=== PATIENT | female | born 1995 | race Caucasian/White ===

== ENCOUNTER → 2019-08-01 14:13 | Outpatient (BNVA) | payer SELFPAY | PROVIDERS: Visit Provider Nurse Practitioner Family | DX: R30.0 Dysuria (principal); E11.9 Type 2 diabetes mellitus without complications; K29.71 Gastritis, unspecified, with bleeding; F32.9 Major depressive disorder, single episode, unspecified; B37.9 Candidiasis, unspecified; N39.0 Urinary tract infection, site not specified | CPT/HCPCS: 81003; 81025 ==

== ENCOUNTER → 2019-08-07 15:44 | Outpatient (BNVA) | payer SELFPAY | PROVIDERS: Visit Provider Nurse Practitioner Family | DX: R53.83 Other fatigue (principal); E78.2 Mixed hyperlipidemia; E11.9 Type 2 diabetes mellitus without complications; E55.9 Vitamin D deficiency, unspecified | CPT/HCPCS: 80053; 80061; 81001; 82306; 83036; 84443 ==

== ENCOUNTER → 2019-11-22 14:38 | Outpatient (BNVA) | payer MEDICAID, SELFPAY | PROVIDERS: PCP Nurse Practitioner Family; Visit Provider Nurse Practitioner Family | DX: N39.0 Urinary tract infection, site not specified (principal); E11.9 Type 2 diabetes mellitus without complications | CPT/HCPCS: 36415; 80053; 81003; 83036; 85025 ==

== ENCOUNTER → 2020-01-23 09:01 | Outpatient (BNVA) | payer MEDICAID, SELFPAY | PROVIDERS: PCP Nurse Practitioner Family; Visit Provider Nurse Practitioner Family | DX: K52.9 Noninfective gastroenteritis and colitis, unspecified (principal); E78.2 Mixed hyperlipidemia; E11.9 Type 2 diabetes mellitus without complications; R10.84 Generalized abdominal pain | CPT/HCPCS: 80053; 80061; 83036; 84439; 84443; 84481; 86140 ==

== ENCOUNTER 2020-09-24 13:40 | Outpatient (CLI) | payer MEDICAID, SELFPAY ==
--- NOTE | 2020-09-24 13:56 | US_ITS ---
WS: [id number] ULTRASOUND OB LIMITED TECHNIQUE: Limited ultrasound examination of the fetus. CLINICAL INFORMATION: POLYHYDRAMNIOS 3RD TRIMESTER COMPARISON: None. FINDINGS: Polyhydramnios with SPENCER 27.4 CM. Vertex presentation with anterior placenta grade 2. Cervix is long and closed measuring 3.2 CM. Single interuterine gestation. presentation is vertex Placental location is anterior. Placenta grade: 2 heart rate 131 BPM. Biophysical profile 8 out of 8. breathin movement: 2 tone: 2 Amniotic fluid: 2 IMPRESSION 1. Normal biophysical profile 8 out of 8 2. Polyhydramnios. SPENCER 27.5 CM greater than the 97th percentile. 3. Cervix is long and closed. 4. Vertex presentation with anterior placenta grade 2.
== END 2020-09-24 13:41 | disposition home or self-care (01) ==
LOC: RAD 13:47
PROVIDERS: PCP Nurse Practitioner Family; Visit Provider Obstetrics & Gynecology
DX: O40.3XX1 Polyhydramnios, third trimester, fetus 1 (principal)
CPT/HCPCS: 76819

== ENCOUNTER 2020-09-26 07:58 | Outpatient (CLI) | payer MEDICAID, SELFPAY ==
--- NOTE | 2020-09-26 08:02 | US_ITS ---
WS: [id number] ULTRASOUND OB LIMITED TECHNIQUE: Limited ultrasound examination of the fetus. CLINICAL INFORMATION: POLYHYDRAMNIOS 3RD TRIMESTER COMPARISON: September 24, 2020 FINDINGS: Cervix measures 2.6 cm although not well seen Single interuterine gestation. presentation is vertex Placental location is anterior. Placenta grade: 2 heart rate 136 BPM. SPENCER 21.8cm today slightly decreased from previous just below the 95th percentile Biophysical profile 8 out of 8. breathin movement: 2 tone: 2 Amniotic fluid: 2 IMPRESSION 1. Normal biophysical profile 8 out of 8 2. SPENCER just below the 95th percentile
== END 2020-09-26 07:59 | disposition home or self-care (01) ==
LOC: RAD 08:00
PROVIDERS: PCP Nurse Practitioner Family; Visit Provider Obstetrics & Gynecology
DX: O40.3XX1 Polyhydramnios, third trimester, fetus 1 (principal)
CPT/HCPCS: 76819

== ENCOUNTER → 2021-12-01 11:52 | Outpatient (BNVA) | payer MEDICAID, SELFPAY | PROVIDERS: PCP Nurse Practitioner Family; Visit Provider Nurse Practitioner | DX: E11.9 Type 2 diabetes mellitus without complications (principal) | CPT/HCPCS: 83036 ==

== ENCOUNTER → 2022-10-07 09:14 | Outpatient (BNVA) | payer MEDICAID, SELFPAY | PROVIDERS: PCP Nurse Practitioner Family; Visit Provider Obstetrics & Gynecology | DX: Z32.00 Encounter for pregnancy test, result unknown (principal) | CPT/HCPCS: 81025 ==

== ENCOUNTER → 2022-10-19 15:30 | Outpatient (BNVA) | payer MEDICAID, SELFPAY | PROVIDERS: PCP Nurse Practitioner Family; Visit Provider Obstetrics & Gynecology | DX: Z34.80 Encounter for supervision of other normal pregnancy, unspecified trimester (principal) | CPT/HCPCS: 80307; 84315; 85027; 86592; 86762; 86803; 86850; 86900; 87077; 87086; 87184; 87340; 87806 ==

== ENCOUNTER → 2022-10-27 14:00 | Outpatient (BNVA) | payer MEDICAID, SELFPAY | PROVIDERS: PCP Nurse Practitioner Family; Visit Provider Obstetrics & Gynecology | DX: Z36.87 Encounter for antenatal screening for uncertain dates (principal); Z34.91 Encounter for supervision of normal pregnancy, unspecified, first trimester; Z3A.09 9 weeks gestation of pregnancy | CPT/HCPCS: 76817; 84315 ==

== ENCOUNTER → 2023-03-01 12:55 | Outpatient (BNVA) | payer MEDICAID, SELFPAY | PROVIDERS: PCP Nurse Practitioner Family; Visit Provider Nurse Practitioner Women's Health | DX: Z34.80 Encounter for supervision of other normal pregnancy, unspecified trimester (principal) | CPT/HCPCS: 84315; 85025 ==

== ENCOUNTER → 2023-03-17 12:00 | Outpatient (BNVA) | payer MEDICAID, SELFPAY | PROVIDERS: PCP Nurse Practitioner Family; Visit Provider Nurse Practitioner Women's Health | DX: Z34.90 Encounter for supervision of normal pregnancy, unspecified, unspecified trimester (principal); R82.90 Unspecified abnormal findings in urine | CPT/HCPCS: 81000; 87086 ==

== ENCOUNTER → 2023-04-28 15:00 | Outpatient (BNVA) | payer MEDICAID, SELFPAY | PROVIDERS: PCP Nurse Practitioner Family; Visit Provider Nurse Practitioner Women's Health | DX: Z34.80 Encounter for supervision of other normal pregnancy, unspecified trimester (principal) | CPT/HCPCS: 84315; 87081; 87491; 87591 ==

== ENCOUNTER 2023-09-01 05:42 | Day surgery (SDC) | payer MEDICAID, SELFPAY ==
--- NOTE | 2023-08-31 13:35 | W.PM.OPSFHP ---
Same Day Surgery H&P Indication for Procedure/HPI DATE OF PROCEDURE: September 01, 2023 CHIEF COMPLAINT/INDICATIONFOR SURGICAL PROCEDURE: desires permanent sterilization PREOP DIAGNOSIS: desires permanent sterilization PLANNED PROCEDURE: Operation Date: 09/01/23 07:00 Proposed Procedures p Laparoscopic bilateral partial salpingectomy 60046(Bilateral) - Terrence Saenz MD 27 y.o. A1 desires permanent sterilization does not want reversible control now scheduled for laparoscopic bilateral partial salpingectomy Medications/Allergies* Home Medications Medication Instructions Recorded Confirmed Type No Known Home Medications 08/31/23 08/31/23 History Allergies/Adverse Reactions Allergy/AdvReac Type Severity Reaction Status Date / Time Alpha-Gal Allergy Unknown Verified 08/31/23 10:04 (Wxhznwscv-Twrex-2,3-Gala Pertinent History/Comorbid Conditions* Medical History (Updated 05/28/23 @ 22:20 by Terrence Saenz MD) Abdominal pain Chronic diarrhea Depression GERD (gastroesophageal reflux disease) Diabetes Surgical History (Updated 08/01/19 @ 14:26 by CHOLO Villarreal) History of surgery on wrist (08/30/14) Open reduction and external fixation of wrist, Dr. Jessica Family History (Updated 04/18/19 @ 13:10 by Kaia Bruno RN) Diabetes Cancer Social History Smoking and tobacco/nicotine status: current every day tobacco/nicotine user cigarettes Packs smoked per day: 0.5 Lives independently: Yes Household members: family Pertinent Exam Findings alert, oriented x 3, clear to auscultation bilaterally and regular rate & rhythm Recommendations Surgery/Procedure today Coding Level of Care Code Acute Code for Chg Fwd Time Spent (min) 20
[2023-09-01] VITALS (10 sets, daily range): BP systolic 101–125; BP diastolic 71–84; PULSE 92–111; RESP 12–18; TEMP 36.2–36.6; O2SAT 94–99
[2023-09-01 06:08] LABS: OR HCG Qualitative Urine Negative (Negative)
[2023-09-01] MEDS: sodium chloride 0.9% 1,000 ML 30 ML IV (06:23)
--- NOTE | 2023-09-01 06:45 | ANES.PREANE2 ---
Pre-Anesthetic Assessment Height/Weight: Height 1.65 m Weight 78.925 kg Temp Pulse Resp BP Pulse Ox O2 Del Method 97.8 F 109 H 18 113/80 94 Room Air 09/01/23 06:00 09/01/23 06:00 09/01/23 06:00 09/01/23 06:00 09/01/23 06:00 09/01/23 06:00 Preop Diagnosis: desires permanent sterilization Operation Date: 09/01/23 07:00 Proposed Procedures p Laparoscopic bilateral partial salpingectomy 51765(Bilateral) - Terrence Saenz MD Familial anesthetic complications: None Was Beta Luis Felipe taken within 24 hours: N/A Was Clonidine taken within 24 hours: N/A Last intake: Intake Last Liquid Date 08/31/23 Last Liquid Time 22:00 Last Solid Date 08/31/23 Last Solid Time 22:00 Social Tobacco and No alcohol Exam alert, oriented x 3, clear to auscultation bilaterally and regular rate & rhythm Airway Mallampati: Class III Dentition: other (2 teeth pulled) Metabolic Diabetes Mellitus Anesthetic Plan ASA status: 2 Anesthesia: General Risk of > 500 ml blood loss (7ml/kg in children): No Medications/Allergies Home Medications Medication Instructions Recorded Confirmed Last Taken Type No Known Home Medications 08/31/23 08/31/23 Unknown History Allergies Allergy/AdvReac Type Severity Reaction Status Date / Time Alpha-Gal Allergy Unknown Verified 08/31/23 10:04 (Todttgtix-Uxlkh-1,3-Gala Current Medications Generic Name Dose Route Start Last Admin Trade Name Freq PRN Reason Stop Dose Admin Sodium Chloride 1,000 mls @ 30 mls/hr 09/01/23 06:00 09/01/23 06:23 Sodium Chloride 0.9% IV 09/02/23 05:59 30 mls/hr .Q24H DHARMESH Administration PFSH Anesthesia Medical History Abdominal pain Chronic diarrhea Depression GERD (gastroesophageal reflux disease) Diabetes Surgical History History of surgery on wrist (08/30/14) Open reduction and external fixation of wrist, Dr. Jessica Family History Other Cancer Diabetes Social History Smoking and tobacco/nicotine status: current every day tobacco/nicotine user cigarettes Packs smoked per day: 0.5 Lives independently: Yes Household members: family Data Anesthesia Cardiac Studies: No Data to Display
--- NOTE | 2023-09-01 06:54 | W.PM.OPSUD ---
Surgery/Procedure H&P Update DATE OF PROCEDURE: September 01, 2023 DATE H&P PERFORMED: 08/31/23 H&P UPDATE INFORMATION: I have reviewed H&P completed within last 30 days, I have examined patient prior to procedure and No changes to prior documentation PREOP DIAGNOSIS: desires permanent sterilization PLANNED PROCEDURE: Operation Date: 09/01/23 07:00 Proposed Procedures p Laparoscopic bilateral partial salpingectomy 09373(Bilateral) - Terrence Saenz MD
--- NOTE | 2023-09-01 08:50 | P.OP_ITS ---
Operative Report Date of procedure: September 01, 2023 Pre-op diagnosis: desires permanent sterilization Post-op diagnosis: same Post-op findings: normal uterus, tubes, and ovaries Procedure done: laparoscopic bilateral partial salpingectomy Implants: none Specimens removed/disposition: bilateral partial fallopian tube segments Surgeon: Terrence Saenz MD Anesthesia: General Estimated blood loss (mL): 5 Complications: none Condition: stable Disposition: PACU Brief History: 27 y.o. desires permanent sterilization Procedure: Informed consent was obtained. The patient was taken to the OR and placed on the table. General endotracheal anesthesia was induced. The patient was then placed in dorsolithotomy position. The abdomen and perineum were then prepped and draped in the usual fashion. A 5 mm subumbilical skin incision was made. A 5 mm trocar with sheath was then inserted into the peritoneal cavity under direct visualization with the laparoscope. After confirming intraperitoneal position, pneumoperitoneum was achieved. Two separate 5 mm incisions were made in the right and left mid- quadrants. 5 mm trocars with sheaths were then inserted into the peritoneal cavity under direct visualization with the laparoscope. The right fallopian tube was then identified to its fimbrial end. Starting at the fimbrial end, the mesosalpinx was then coagulated and cut using the Ligasure. A 3-4 cm portion of the right fallopian tube was excised and removed via one of the ports. This was sent to pathology. There was no bleeding seen. Similarly, the left fallopian tube was identified to its fimbrial end. A 3-4 cm portion of the left fallopian tube was excised and removed, sent to pathology. There was no bleeding. All instruments were then removed from the peritoneal cavity after the pneumoperitoneum was allowed to escape. The skin incisions were closed using 3- O chromic in subcuticular fashion. Dermabond was applied. The patient was then placed supine and awakened, taken the the PACU in good condition. Postop condition: stable EBL: 5 cc Complications: none Sponge, needles, and instruments counts correct x two
[2023-09-01] MEDS: oxyCODONE-APAP 10-325 mg Tablet 1 TAB PO (09:15)
== END 2023-09-01 10:05 | disposition home or self-care (01) ==
PROVIDERS: Anesthesiology; PCP Nurse Practitioner Family; Visit Provider Obstetrics & Gynecology
PROC: (CPT 58661; principal; 2023-09-01 07:00)
DX: Z30.2 Encounter for sterilization (principal); F17.210 Nicotine dependence, cigarettes, uncomplicated; E11.9 Type 2 diabetes mellitus without complications; F32.A Depression, unspecified; K21.9 Gastro-esophageal reflux disease without esophagitis
CPT/HCPCS: 58661; 81025; 88302; J0330; J1100; J1200; J2250; J2371; J2405; J2704; J2710; J3010; J3490; J7030

== ENCOUNTER 2023-09-13 13:13 | Emergency (ER) | payer OTHER, SELFPAY ==
[2023-09-13 13:42] VITALS: BMI 28.9
--- NOTE | 2023-09-13 13:48 | ED_ITS ---
HPI - General Adult General: Chief complaint: General Medical Stated complaint: needle stick Time Seen by Provider: 09/13/23 13:40 Source: patient Mode of arrival: ambulatory Limitations: no limitations History of Present Illness: Patient is a 27-year-old female presents to ED today with a Worker's Comp. exposure related complaint. Patient states she just started [employer]. Patient states she had just received her TB wheel test injection when the individual that had administered the test, accidentally poked herself with the needle that was used on the patient. Patient herself was NOT poked/injected with a contaminated needle and she at this time is considered the source patient. [facility] reportedly sent her to the ED to make sure I do not have anything . Onset (ago): hour(s) Relieving factors: none Exacerbating factors: none Associated symptoms: Reports no associated symptoms Treatments prior to arrival: none Review of Systems General: Reports: 10 or more systems reviewed and unremarkable except in HPI and below PFSH ED PFSH: Medical History Abdominal pain Chronic diarrhea Depression GERD (gastroesophageal reflux disease) Diabetes Surgical History History of surgery on wrist (08/30/14) Open reduction and external fixation of wrist, Dr. Jessica Family History Other Cancer Diabetes Social History Smoking and tobacco/nicotine status: current every day tobacco/nicotine user cigarettes Packs smoked per day: 0.5 Lives independently: Yes Household members: family Physical Exam Const: COMMON NORMALS: no acute distress, no limitations and well nourished Course Vital Signs: Vital signs: Vital Signs Temperature 98.2 F 09/13/23 13:54 Pulse Rate 94 09/13/23 13:54 Respiratory Rate 18 09/13/23 13:54 Blood Pressure 128/79 09/13/23 13:54 Pulse Oximetry 96 09/13/23 13:54 Oxygen Delivery Me thod Room Air 09/13/23 13:54 MDM - General Adult Medical Decision Making I did have [employer] contact employee health nurse/Suzie who stated source patient labs are the same (employee exposure labs). Not sure why they came to ED for this as this can be completed through PCP/Health Dept/Occupational Health/etc. Regardless-labs drawn and pending. Patient would like to be discharged. [facility] will call later today to get results. Medical Records I reviewed the patient's medical records. No radiology studies performed this visit Discharge Plan Discharge Patient Disposition: Home Clinical Impression: Encounter for HCV screening test for low risk patient, Encounter for screening for HIV Condition: Stable Prescriptions: No Action No Known Home Medications Discharge Orders: Discharge ED (Routine); Ordered 09/13/23 Ordered By: Hanna James Referrals: Shama Salinas FNP [Primary Care Provider] - Activity Restrictions/Additional Instructions: Your results for hepatitis and HIV testing are currently pending. These should be available within an hour or so. You should be able to access these on your patient portal or can call us to fax results to [facility]. Coding Level of Care Code ED Manager Community Development for Joseph Neves
[2023-09-13 13:54] VITALS: BP 128/79; PULSE 94; RESP 18; TEMP 36.8; O2SAT 96
[2023-09-13 14:27] LABS: Hepatitis B Surface AB 18.9 (11.5-1000); Hepatitis B Surface Antigen Non-Reactive (Nonreactive); Hepatitis C Virus Antibody Non-Reactive (Nonreactive)
[2023-09-13 14:46] LABS: HIV 1 & 2 Antibody Non-Reactive (Non-Reactiv); HIV 1 & 2 Antigen Non-Reactive (Non-Reactiv)
== END 2023-09-13 14:27 | disposition home or self-care (01) ==
PROVIDERS: Emergency Provider Physician Assistant; PCP Nurse Practitioner Family
DX: Z11.4 Encounter for screening for human immunodeficiency virus [HIV] (principal); Z11.59 Encounter for screening for other viral diseases; Y99.0 Civilian activity done for income or pay; E11.9 Type 2 diabetes mellitus without complications; F17.210 Nicotine dependence, cigarettes, uncomplicated
CPT/HCPCS: 36415; 86706; 86803; 87340; 87806; 99283

== ENCOUNTER 2024-01-26 13:00 | Outpatient (CLI) | payer MEDICAID, SELFPAY ==
--- NOTE | 2024-01-26 13:30 | US_ITS ---
WS: [id number] US OB transvaginal [id number] HISTORY: 1ST TRIMESTER DATING COMPARISON: No recent similar studies. Uterus: 11.7 cm x 7.1 cm x 6.0 cm. Normal size anteverted uterus. No fibroid or mass. Endometrium: 2.0 cm. Thickened endometrium. There is a small amount of fluid along the endometrial ca nal greatest towards the fundus. This is elongated fluid with no decidual reaction. There is no pole or crown-rump length. Right ovary: 3.4 cm x 2.3 cm x 3.9 cm. Normal size and vascularity, no cystic or solid masses. Left ovary: 2.3 cm x 1.5 cm x 2.7 cm. Normal size and vascularity, no cystic or solid masses. Small amount of free fluid in the cul-de-sac. US/US OB transvaginal [id number] IMPRESSION: 1. Cannot confirm intrauterine gestation. 2. There is a small amount of fluid along the endometrial canal with no decidu al reaction. This is linear fluid and not typical for gestational sac. 3. No pole or crown-rump length. No yolk sac. 4. Small amount of free fluid in the cul-de-sac. 5. No adnexal masses identified other than the ovaries. 6. With no documentation of the intrauterine gestation ectopic is no t excluded. Recommend close serial beta hCG evaluation and repeat ultrasound if necessary.
== END 2024-01-26 13:01 | disposition home or self-care (01) ==
LOC: RAD 13:02
PROVIDERS: PCP Nurse Practitioner Family; Visit Provider Nurse Practitioner Family
DX: Z33.1 Pregnant state, incidental (principal); Z98.51 Tubal ligation status; N92.6 Irregular menstruation, unspecified
CPT/HCPCS: 76817

== ENCOUNTER 2024-02-02 13:55 | Emergency (ER) | payer MEDICAID, SELFPAY ==
[2024-02-02] VITALS (7 sets, daily range): BP systolic 106–121; BP diastolic 71–85; PULSE 89–122; RESP 16; TEMP 36.7; O2SAT 98–100
--- NOTE | 2024-02-02 14:38 | ECG_ITS ---
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 Measurements Intervals [place] Rate: 119 P: 136 SC: 133 QRS: 181 QRSD: 82 T: 166 QT: 280 QTc: 395 Interpretive Statements ECTOPIC ATRIAL TACHYCARDIA RIGHT AXIS DEVIATION [QRS AXIS > 100] MODERATE ST DEPRESSION [0.05+ mV ST DEPRESSION] No previous ECG available for comparison Electronically Signed On 02-02-2024 23:01:04 CDT by Lissette Hollis M.D. [email or web address]
--- NOTE | 2024-02-02 17:48 | ED_ITS ---
HPI - Arrhythmia/Palpitations 2 General: Chief Complaint: Arrhythmia/Palpitations Stated Complaint: tubal but poss preg Time Seen by Provider: 02/02/24 16:13 Source: patient Mode of arrival: ambulatory Limitations: no limitations History of Present Illness: Patient is a 28-year-old female presenting to the emergency department complaining of chest pain and palpitations intermittently over the past couple of weeks, worsening today. States that she is 4 weeks by last menstrual period, last had her serum hCG checked today and found that it correlated with her gestational age. States that the pain was centrally located and did radiate down her left arm. States that in the past she was diagnosed with an NY despite not having cardiac catheterization or labs done, states that she was just transferred from [facility] to [place]. She is also noting shortness of breath. She is not reporting any abdominal pain, vaginal bleeding, syncope, or other concerning symptoms in regards to . Heart rate is elevated at time of examination, states that it has always been elevated and she is currently trying to find a optical engineering manager for this. She does appear in no acute distress, slightly anxious however. MD complaint: palpitations Onset (ago): week(s) Duration: intermittent Severity: moderate Associated symptoms: Deny nausea, syncope or vomiting Related Data Home Medications Medication Instructions Recorded Confirmed No Known Home Medications 08/31/23 09/07/23 Allergies Allergy/AdvReac Type Severity Reaction Status Date / Time Alpha-Gal Allergy Unknown Verified 02/02/24 14:41 ([place]-Ixzsi-7,3-Gala Review of Systems 2 General: Reports: 10 or more systems reviewed and unremarkable except in HPI and below Const: Denies: fever(s), chills or fatigue Eyes: Denies: change in vision ENMT: Denies: throat pain, ear or mastoid pain or nasal discharge Card: Reports: chest pain and palpitations; Denies: swelling of feet/ankles, lightheadedness or syncope Resp: Reports: dyspnea; Denies: productive cough or wheezing GI: Reports: other (); Denies: abdominal pain, nausea, vomiting, diarrhea or constipation : Denies: flank pain, difficulty voiding, dysuria, urinary frequency, vaginal bleeding or pelvic pain Musc: Denies: neck pain, back pain or joint pain Skin/Breast: Denies: rash Neuro: Denies: headache(s), numbness in extremities, weakness in extremities or dizziness PFSH ED 2 PFSH: Medical History Abdominal pain Chronic diarrhea Depression GERD (gastroesophageal reflux disease) Diabetes Surgical History History of surgery on wrist (08/30/14) Open reduction and external fixation of wrist, Dr. Jessica Family History Other Cancer Diabetes Social History Smoking and tobacco/nicotine status: never used tobacco/nicotine Lives independently: Yes Household members: family Physical Exam 2 Const: COMMON NORMALS: no acute distress, average body habitus, patient oriented x3, no limitations, healthy appearing, alert and well nourished G ENERAL APPEARANCE: cooperative and anxious ORIENTATION/CONSCIOUSNESS: Yes awake HENMT: COMMON NORMALS: normocephalic, atraumatic, hearing grossly normal bilaterally, external ears normal, Normal external nose present, Normal nasal mucous membranes and turbinates present and moist oral mucous membranes HEAD & SCALP: normocephalic and atraumatic NOSE: Normal external nose present and Normal nasal mucous membranes and turbinates present EXTERNAL EAR: Yes external ears normal Eye: COMMON NORMALS: Equal, round and reactive pupils present, EOMs intact bilaterally, conjunctivae normal and normal visual mahan by confrontation C ONJUNCTIVA: Yes conjunctivae normal PUPIL: Yes Equal, round and reactive pupils present Neck/C-Spine: COMMON NORMALS: full ROM, supple, no meningeal signs and no JVD Resp: COMMON NORMALS: normal respiratory effort, No retractions, No use of accessory muscles and clear to auscultation bilaterally AUSCULTATION: clear to auscultation bilaterally, no crackles, no rales, no rhonchi and no wheezes Cardio: COMMON NORMALS: no JVD, regular rhythm, S1 normal heart sound present, S2 normal heart sound present, No gallops present (Cardio), No clicks present (Cardio), No murmurs present (Cardio), No rub (Cardio) and Peripheral pulses 2+ throughout RATE: tachycardic (100-110 at time of examination) RHYTHM: r egular rhythm HEART SOUNDS: S1 normal heart sound present and S2 normal heart sound present PERIPHERAL PULSES: Peripheral pulses 2+ throughout GI: COMMON NORMALS: Normal to inspection, nondistended, normoactive bowel sounds present, Soft to palpation, non-tender, No hepatosplenomegaly present and no masses AUSCULTATION: Yes normoactive bowel sounds PALPATION: Yes Soft to palpation, No Guarding due to palpation present (GI), No Rigid due to palpation and Yes No hepatosplenomegaly present RECTAL EXAM: deferred : COMMON NORMALS: Yes no CVA tenderness BLADDER/KIDNEY EXAM: Yes no CVA tenderness Back/Pelvis: COMMON NORMALS: no CVA tenderness Extremity: COMMON NORMALS: normal to inspection and full ROM Neuro: COMMON NORMALS: patient oriented x3, moves all extremities, no focal motor deficits and no sensory deficits noted SENSORIUM/ORIENTATION: Yes alert MENINGEAL SIGNS: Yes no meningeal signs Psych: COMMON NORMALS: mental status grossly normal, cooperative and speech normal SPEECH: Yes normal speech Skin: COMMON NORMALS: no rashes or lesions noted GENERAL SKIN EXAM: no rashes or lesions noted Course 2 Vital Signs: Vital signs: Vital Signs Temperature 98.1 F 02/02/24 14:34 Pulse Rate 90 02/02/24 20:45 Respiratory Rate 16 02/02/24 14:34 Blood Pressure 111/76 02/02/24 20:45 Pulse Oximetry 98 02/02/24 20:45 Oxygen Delivery Me thod Room Air 02/02/24 19:00 MDM - Arrhythmia/Palpitations Medical Decision Making Patient approximately 4 weeks , presenting with palpitations and episode of intermittent chest pains rating down left arm. She did report to me history of an NY in the past, though did not have catheterization or lab work obtained at that time. She does note that she recently had an echocardiogram a couple weeks ago due to her episodes of palpitations and chest pains, this was also normal. Today she was concerned that her blood pressure dropped pretty low, and has been normal here in the emergency department, heart rate has been somewhat elevated from 90?110. Her EKG was unremarkable, troponin was found to be nonnegative at 30, with 2-hour troponin showing decreased to 25. Because of this decrease, consulted with Dr. Villegas, cardiology, who states that this is likely secondary to episodes of tachycardia she has been having however can be admitted for observation and an echocardiogram tomorrow. Did relay this to patient, states that due to her recent echocardiogram she would like to continue following up outpatient and states that she is currently trying to get a coronary artery cath set up through primary care. Upon further questioning, patient states that she has been smoking, and has noted that her heart rate tends to jump after smoking. Also reports significant caffeine intake as well as low water intake. Her blood pressure also was reported to be low after she had recently stood up and got dizzy, making this consistent with potentially an orthostatic hypotension. With all these physiological explanations, I do not believe that her tachycardia is cardiac in nature at this time, however is to be further worked up on an outpatient basis as already planned. I did discuss this patient's case with Dr. Kamara, who agrees with disposition at this time. Patient states she is ready to go home. Lab Data 02/02/24 17:43 02/02/24 17:43 Laboratory Results WBC 11.70 10^3/uL (3.29-11.43) H 02/02/24 17:43 RBC 4.54 10^6/uL (3.85-5.65) 02/02/24 17:43 Hgb 12.10 g/dL (11.27-16.99) 02/02/24 17:43 Hct 37.7 % (36-47) 02/02/24 17:43 MCV 83.0 fl (85-98) L 02/02/24 17:43 MCH 26.7 pg (27-33) L 02/02/24 17:43 MCHC 32.1 g/dL (30-55) 02/02/24 17:43 RDW 14.6 % (12.1-15.1) 02/02/24 17:43 Plt Count 404 10^3/cmm (157-399) H 02/02/24 17:43 MPV 9.2 fL (7.4-10.4) 02/02/24 17:43 Neut % (Auto) 68.6 % 02/02/24 17:43 Lymph % (Auto) 23.6 % 02/02/24 17:43 [place] % (Auto) 5.8 % 02/02/24 17:43 Eos % (Auto) 1.1 % 02/02/24 17:43 Baso % (Auto) 0.6 % 02/02/24 17:43 Neut # (Auto) 8.02 10^3/uL (1.8-7.7) H 02/02/24 17:43 Lymph # (Auto) 2.8 10^3/uL (0.8-4.8) 02/02/24 17:43 [place] # (Auto) 0.7 10^3/uL (0.2-0.9) 02/02/24 17:43 Eos # (Auto) 0.1 10^3/uL (0.0-0.8) 02/02/24 17:43 Baso # (Auto) 0.1 10^3/uL (0.0-0.1) 02/02/24 17:43 Nucleated RBC % (auto) 0 % 02/02/24 17:43 Nucleated RBCs # 0.0 /100WBC 02/02/24 17:43 Sodium 137 mmol/L (136-145) 02/02/24 17:43 Potassium 4.2 mmol/L (3.5-5.1) 02/02/24 17:43 Chloride 104 mmol/L (98-107) 02/02/24 17:43 Carbon Dioxide 22 mmol/L (22-29) 02/02/24 17:43 Anion Gap 15.2 (5-19) 02/02/24 17:43 BUN 9 mg/dL (6-20) 02/02/24 17:43 Creatinine 0.4 mg/dL (0.5-0.9) L 02/02/24 17:43 GFR Calculation 192.9 mL/min (90-130) H 02/02/24 17:43 Glucose 208 mg/dL (65-115) H 02/02/24 17:43 Calculated Osmolality 289 mOsm/kg (285-295) 02/02/24 17:43 Lactic Acid 1.5 mmol/L (0.5-2.2) 02/02/24 17:43 Calcium 9.0 mg/dL (8.5-10.5) 02/02/24 17:43 Total Bilirubin 0.2 mg/dL (0.15-1.2) 02/02/24 17:43 AST 32 U/L (0-32) 02/02/24 17:43 ALT 50 U/L (0-33) H 02/02/24 17:43 Alkaline Phosphatase 62 U/L (35-105) 02/02/24 17:43 Troponin T Baseline 30 ng/L (0-10) H 02/02/24 17:43 Troponin T 120 Minute 25.33 ng/L (0-10) H 02/02/24 19:43 Delta Troponin T -4.67 ABS# (0-10) L 02/02/24 19:43 NT-Pro-B Natriuret Pep 53 pg/mL (0-125) 02/02/24 17:43 Total Protein 7.0 g/dL (6.6-8.7) 02/02/24 17:43 Albumin 4.3 g/dL (3.5-5.2) 02/02/24 17:43 Globulin 2.7 g/dL (1.3-4.6) 02/02/24 17:43 HCG, Qual Positive (Negative) H 02/02/24 17:43 HCG, Qual Positive (Negative) H 02/02/24 17:43 Ser , Semi-Qnt 6020.00 mIU/mL 02/02/24 17:43 Urine Color Yellow (Yellow) 02/02/24 17:43 Urine Appearance Clear (CLEAR) 02/02/24 17:43 Urine pH 5.0 (5-7) 02/02/24 17:43 Ur Specific [place] 1.033 (1.005-1.030) H 02/02/24 17:43 Urine Protein Negative (Negative) 02/02/24 17:43 Urine Glucose (UA) 3+ (Normal) H 02/02/24 17:43 Urine Ketones Negative (Negative) 02/02/24 17:43 Urine Blood Negative (Negative) 02/02/24 17:43 Urine Nitrate Negative (Negative) 02/02/24 17:43 Urine Bilirubin Negative (Negative) 02/02/24 17:43 Urine Urobilinogen 1.0 mg/dL (Negative) 02/02/24 17:43 Ur Leukocyte Esterase Negative (Negative) 02/02/24 17:43 Urine RBC 0-2 /hpf (0-2) 02/02/24 17:43 Urine WBC 0-5 /hpf (0-5) 02/02/24 17:43 Ur Squamous Epith Cells 0-5 /hpf (0-5) 02/02/24 17:43 Amorphous Sediment Not Reportable 02/02/24 17:43 Urine Bacteria None seen /hpf (NONE) 02/02/24 17:43 Hyaline Casts 4.11 /lpf 02/02/24 17:43 No radiology studies performed this visit Discharge Plan Discharge Patient Disposition: Home Clinical Impression: Palpitations, test positive Condition: Stable Prescriptions: No Action No Known Home Medications Discharge Orders: Discharge ED (Routine); Ordered 02/02/24 Ordered By: Shemar Goodson Referrals: Shama Salinas FNP [Primary Care Provider] - Patient Instructions: Heart Palpitations (ED) Activity Restrictions/Additional Instructions: Follow-up with OB next week as scheduled. Also follow-up with your primary care provider for further outpatient workup. Return with any new or concerning symptoms you may have. Avoid smoking and drink plenty of fluids. Coding Level of Care Code ED Power Originator for Joseph Neves
[2024-02-02 17:56] LABS: HCG Qualitative Urine. Positive (Negative)
[2024-02-02 17:58] LABS: Bilirubin Urine Negative (Negative); Blood Urine Negative (Negative); Glucose Urine UA 3+ (Normal); Ketones Urine Negative (Negative); Leukocyte Esterase Urine Negative (Negative); Nitrate Urine Negative (Negative); Protein Urine Negative (Negative); Urine Appearance Clear (CLEAR); Urine Color Yellow (Yellow)
[2024-02-02 18:03] LABS: Add Urine Microscopic? YES; Bacteria Urine None Seen /hpf; Hyaline Casts Urine 4.11 /lpf; RBC Urine 0-2 /hpf (0-2); Squamous Epithelial Cell Urine 0-5 /hpf (0-5); WBC Urine 0-5 /hpf (0-5)
[2024-02-02 18:17] LABS: Basophils # 0.1 10^3/uL (0.0-0.1); Basophils % 0.6 %; Eosinophils # 0.1 10^3/uL (0.0-0.8); Eosinophils % 1.1 %; Hematocrit 37.7 % (36-47); Lymphocytes # 2.8 10^3/uL (0.8-4.8); Lymphocytes % 23.6 %; Mean Corpuscular HGB Conc 32.1 g/dL (30-55); Mean Corpuscular Hemoglobin 26.7 pg (27-33); Mean Platelet Volume 9.2 fL (7.4-10.4); Monocytes # 0.7 10^3/uL (0.2-0.9); Monocytes % 5.8 %; Neutrophils # 8.02 10^3/uL (1.8-7.7); Neutrophils % 68.6 %; Nucleated Red Blood Cells % 0 %; Platelet Count 404 10^3/cmm (157-399); Red Blood Count 4.54 10^6/uL (3.85-5.65); Red Cell Distribution Width 14.6 % (12.1-15.1)
[2024-02-02 18:31] LABS: Lactic Sepsis W/Reflex 1.5 mmol/L (0.5-2.2)
[2024-02-02 18:33] LABS: Troponin(5th) Baseline 30 ng/L (0-10)
[2024-02-02 18:41] LABS: Alanine Aminotransferase 50 U/L (0-33); Albumin Level 4.3 g/dL (3.5-5.2); Alkaline Phosphatase 62 U/L (35-105); Anion Gap 15.2 (5-19); Aspartate Amino Transferase 32 U/L (0-32); Blood Urea Nitrogen 9 mg/dL (6-20); Carbon Dioxide 22 mmol/L (22-29); Chloride 104 mmol/L (98-107); Creatinine Clr Calc Pharmacy 227.3933; Globulin 2.7 g/dL (1.3-4.6); Glomerular Filtration Rate 192.9 mL/min (90-130); Glucose 208 mg/dL (65-115); NT Pro B Type Natriuretic Pept 53 pg/mL (0-125); Osmolality Calculated 289 mOsm/kg (285-295); Potassium 4.2 mmol/L (3.5-5.1); Sodium 137 mmol/L (136-145); Total Bilirubin 0.2 mg/dL (0.15-1.2)
[2024-02-02 18:46] LABS: Specific Gravity, Urine 1.033 (1.005-1.030)
[2024-02-02 18:53] LABS: HCG, Serum Qual Positive (Negative)
--- NOTE | 2024-02-02 18:57 | ECG_ITS ---
[facility] 2024[facility]02 Pat Name: Winston Sagastume Department: Room: Gender: Female Dynamic Balancer: : 1995 Requested By: Shemar Watts Order Number: [id number] Curiel MD: Lissette Hollis M.D. Measurements Intervals [place] Rate: 89 P: 25 MT: 141 QRS: 33 QRSD: 90 T: 33 QT: 344 QTc: 421 Interpretive Statements SINUS RHYTHM POSSIBLE RIGHT VENTRICULAR CONDUCTION DELAY [RSR (QR) IN V1/V2] Compared to ECG 02/02/2024 14:38:50 Right-axis deviation no longer present ST (T wave) deviation no longer present Electronically Signed On 02-02-2024 23:08:56 CDT by Lissette Hollis M.D. [email or web address]
[2024-02-02 20:11] LABS: Troponin 5 2HR 25.33 ng/L (0-10)
[2024-02-02 20:19] LABS: Troponin 5 2HR Delta -4.67 ABS# (0-10)
== END 2024-02-02 20:48 | disposition home or self-care (01) ==
PROVIDERS: Emergency Medicine; Emergency Provider Physician Assistant; PCP Nurse Practitioner Family
DX: R00.2 Palpitations (principal); R07.9 Chest pain, unspecified; Z32.01 Encounter for pregnancy test, result positive
CPT/HCPCS: 80053; 81001; 81025; 83605; 83880; 84484; 84702; 84703; 85025; 93005; 99284

== ENCOUNTER → 2024-02-14 08:18 | Outpatient (BNVA) | payer MEDICAID, SELFPAY | PROVIDERS: PCP Nurse Practitioner Family; Visit Provider Obstetrics & Gynecology | DX: Z32.01 Encounter for pregnancy test, result positive (principal); N91.2 Amenorrhea, unspecified | CPT/HCPCS: 81025; 84702 ==

== ENCOUNTER → 2024-02-17 08:37 | Outpatient (BNVA) | payer MEDICAID, SELFPAY | PROVIDERS: PCP Nurse Practitioner Family; Visit Provider Nurse Practitioner Women's Health | DX: N92.6 Irregular menstruation, unspecified (principal) | CPT/HCPCS: 84702 ==

== ENCOUNTER → 2024-02-23 14:52 | Outpatient (BNVA) | payer MEDICAID, SELFPAY | PROVIDERS: PCP Nurse Practitioner Family; Visit Provider Nurse Practitioner Women's Health | DX: Z36.9 Encounter for antenatal screening, unspecified (principal) | CPT/HCPCS: 76801 ==

== ENCOUNTER → 2024-03-22 08:50 | Outpatient (BNVA) | payer MEDICAID, SELFPAY | PROVIDERS: PCP Nurse Practitioner Family; Visit Provider Nurse Practitioner Women's Health | DX: O09.90 Supervision of high risk pregnancy, unspecified, unspecified trimester (principal); O99.810 Abnormal glucose complicating pregnancy | CPT/HCPCS: 80307; 83036; 84315; 84443; 85025; 86592; 86762; 86803; 86850; 86900; 87086; 87340; 87491; 87591; 87661; 87806 ==

== ENCOUNTER 2024-06-07 20:54 | Outpatient (CLI) | payer MEDICAID, SELFPAY ==
[2024-06-07] VITALS (14 sets, daily range): BP systolic 94–109; BP diastolic 50–66; PULSE 111–128; RESP 16; TEMP 36; O2SAT 96–97; BMI 31.4
--- NOTE | 2024-06-07 21:59 | USR_ITS ---
PROCEDURE INFORMATION: Exam: US Retroperitoneal, Complete, Kidneys and Bladder Exam date and time: 06/07/2024 10:13 PM Age: 28 years old Clinical indication: Abdominal pain; Left; ; 23w 3d gestation with lt flank pain; Additional info: Left sided kidney pain TECHNIQUE: Imaging protocol: Real-time ultrasound of the retroperitoneum with image documentation. Complete exam focused on the bilateral kidneys and urinary bladder. COMPARISON: US OB <= 14 weeks fetus [id number] 02/23/2024 2:55 PM FINDINGS: Right kidney: Right kidney measures 11.6 cm in length. No stones. No hydronephrosis. Left kidney: Left kidney measures 13.1 cm in length. No stones. No hydronephrosis. Urinary bladder: Unremarkable. US/US renal BI* [id number] IMPRESSION: Unremarkable kidneys and bladder.
[2024-06-07 22:13] LABS: Bilirubin Urine Negative (Negative); Blood Urine Non-haemolysed trace (Negative); Glucose Urine UA Negative (Normal); Ketones Urine Negative (Negative); Leukocyte Esterase Urine 2+ (Negative); Nitrate Urine Positive (Negative); Protein Urine 2+ (Negative); Specific Gravity, Urine 1.016 (1.005-1.030); Urine Appearance Cloudy (CLEAR); Urine Color Yellow (Yellow)
[2024-06-07] MEDS: acetaminophen 500 mg Tablet 1000 MG PO (22:38)
[2024-06-07 22:43] LABS: Add Urine Culture? Yes; Add Urine Microscopic? YES; Bacteria Urine 2+ /hpf; WBC Urine 21-50 /hpf (0-5)
[2024-06-07] MEDS: cefTRIAXone 1,000 mg SDV 1000 MG (23:37)
--- NOTE | 2024-06-08 09:29 | PC.NURSE ---
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
== END 2024-06-07 23:41 | disposition home or self-care (01) ==
LOC: OPOB 21:05 → OBGYN 21:06
PROVIDERS: PCP Nurse Practitioner Family; Visit Provider Family Medicine
DX: O26.899 Other specified pregnancy related conditions, unspecified trimester (principal); Z3A.00 Weeks of gestation of pregnancy not specified; M54.9 Dorsalgia, unspecified
CPT/HCPCS: 76770; 81001; 87086; 99211; J0696